=== PATIENT | female | born 2000 | race African-American/Black ===

== ENCOUNTER → 2025-02-20 | Outpatient (REF) | payer OTHER | LOC: M LAB REF 17:31 | PROVIDERS: ATTEND Physician Assistant | DX: B34.0 Adenovirus infection, unspecified (principal) ==

== ENCOUNTER → 2025-08-19 | Outpatient (CLI) | payer OTHER ==
[2025-08-19 19:28] LABS: HCG, SERUM QUANTITATIVE < 2.6 MIU/ML (<4.2)
[2025-08-19 19:32] LABS: LUTEINIZING HORMONE 7.1 mIU/ML
[2025-08-19 19:33] LABS: ESTRADIOL 288.4 PG/ML; PROGESTERONE 0.71 NG/ML
== END ==
LOC: M LAB 18:12
PROVIDERS: ATTEND Obstetrics & Gynecology
DX: N97.8 Female infertility of other origin (principal)